=== PATIENT | female | born 1965 | race Caucasian/White ===

== ENCOUNTER 2025-07-28 08:46 | Day surgery (SDC) | payer MEDICARE, MEDICAID ==
[2025-07-21 11:51] LABS: LEUKOCYTE ESTERASE ,URINE NEGATIVE (Neg); MEAN PLATELET VOLUME 8.4 FL (7.4-10.4); NITRITES, URINE NEGATIVE (Neg); OCCULT BLOOD,URINE NEGATIVE (Neg); PRE OP HEMATOCRIT 37.3 % (35.0-45.0); PRE OP HEMOGLOBIN 12.8 g/dL (12.0-16.0); PRE OP PLATELET COUNT 252 X10'3 (140-440); PRE OP WHITE BLOOD COUNT 7.6 10'3 (4.8-10.8); RED CELL DISTRIBUTION WIDTH 14.3 % (11.5-14.5)
[2025-07-21 11:56] LABS: UA COLLECTION TYPE CLN CATCH MIDSTREAM
--- NOTE | 2025-07-21 11:56 | ELECTROCARDIOGRAPH REPORT ---
[facility] Test Date: 2025-07-21 Test Time: 11:55:00 Pat Name: GABRIEL [place] Department: [facility]-PRE-OP Patient ID: [id number] Room: Gender: F General Education Instructor: TWILA : 1965 Requested By: ADA SALEH Order Number: [id number] Reading MD: Dr. CHIRAG Lowe Measurements Intervals [place] Rate: 68 P: 62 HI: 116 QRS: 82 QRSD: 74 T: 76 QT: 405 QTc: 431 Interpretive Statements Sinus rhythm Borderline short HI interval Electronically Signed On 07-21-2025 16:48:[address] CHIRAG Lowe Please click the below link to view image of tracing.
[2025-07-21 12:07] LABS: CREATININE 1.00 MG/DL (0.40-0.90); PRE OP ALT 33 U/L (30-65); PRE OP ANION GAP 7 (8-16); PRE OP AST 27 U/L (10-37); PRE OP BILIRUB, TOTAL 0.4 MG/DL (0.0-1.0); PRE OP GLUCOSE 103 MG/DL (70-104); PRE OP INR 1.0 INR; PRE OP PARTIAL THROMB. TIME 26.0 SECONDS (22-32); PRE OP POTASSIUM 4.6 MMOL/L (3.4-5.1); PRE OP PROTIME 10.1 SECONDS (9.0-12.0); PRE OP SODIUM 137 MMOL/L (135-145); TOTAL CARBON DIOXIDE 25.7 MMOL/L (24-32); eGFR 57 ML/MIN
--- NOTE | 2025-07-21 13:09 | RADIOLOGY REPORT ---
EXAM: DI CHEST,TWO VIEWS CLINICAL HISTORY: Pain COMPARISON: None TECHNIQUE: Frontal and lateral view of the chest was obtained FINDINGS: Lines and Tubes: None Lungs: No focal consolidation. Pleura: No effusion. No pneumothorax. Cardiomediastinal contours: Unremarkable Bones: No acute osseous abnormality. IMPRESSION: No acute cardiopulmonary disease.
[~2025-07-28] VITALS: Ht 166.4 cm; Wt 86.2 kg
[2025-07-28] MEDS: ceFAZolin 2gm/dext,iso 50mL 50 ML IV ONE (05:30)
[~2025-07-28 08:46] MED LIST: AMLO5TAB PO; ASPI-10 PO; ATOR40TA71 PO; CHOL100046 PO; FLUT16SP2 BOTHNARES; LEVE750T PO; LISI5TAB22 PO; LORA-268 PO; MELA10TA2 PO; MULT-1085 PO; PANT-47 PO; PERA6TAB PO; [UNRECOGNIZED DRUG - CODE] PO
[2025-07-28 08:50] VITALS: BP 129/83; PULSE 72; RESP 16; TEMP 97.5; O2SAT 100
[2025-07-28] MEDS ORDERED: MONT-47 PO (09:41)
[2025-07-28] MEDS: ringers solution, lacted 1,000 ML IV SCH (09:45)
[2025-07-28] MEDS ORDERED: BUPIVAcaine 2.5mg/ml inj 50ml vial (contains preservative) ONE (11:25)
[2025-07-28] MEDS ORDERED: fentaNYL/PF 50MCG/1 ML 2ML syringe ONE (11:39)
[2025-07-28] MEDS ORDERED: propofol inj 20 ML IV ONE (11:45)
[2025-07-28] MEDS ORDERED: midazolam 1 mg/ML 2ml injection ONE (11:45)
[2025-07-28 12:21] VITALS: BP 118/81; PULSE 72; RESP 14; O2SAT 98
[2025-07-28] MEDS ORDERED: ringers solution, lacted 1,000 ML IV SCH (12:25)
[2025-07-28] MEDS ORDERED: morphine 4 MG/ML inj SYRINge IV PRN ×2 (12:25)
[2025-07-28] MEDS ORDERED: ondansetron/PF 4mg/2ml inj IV PRN (12:25)
[2025-07-28] MEDS ORDERED: acetaminophen 1,000mg/100ml IV 100 ML IV PRN (12:25)
[2025-07-28] MEDS ORDERED: HYDROmorphone/PF 0.2 MG/ML SYRINGE IV PRN ×2 (12:25)
[2025-07-28] MEDS ORDERED: labetalol 20mg/4ml (5mg/ml) syringe IV PRN (12:25)
[2025-07-28] MEDS ORDERED: hydrALAZINE 20mg/ml inj. IV PRN (12:25)
[2025-07-28 12:30] VITALS: BP 124/80; PULSE 67; RESP 14; O2SAT 99
[2025-07-28 12:40] VITALS: BP 129/84; PULSE 68; RESP 13; O2SAT 98
[2025-07-28 12:50] VITALS: BP 124/84; PULSE 72; RESP 12; O2SAT 99
[2025-07-28 13:00] VITALS: BP 151/98; PULSE 65; RESP 14; O2SAT 99
--- NOTE | 2025-07-28 13:17 | OPERATIVE REPORT ---
DATE OF SURGERY: 07/28/2025 DICTATING PHYSICIAN: Mohit Ramirez DPM SURGEON: Mohit Ramirez DPM PREOPERATIVE DIAGNOSIS: Painful 4th toe with exostosis of the middle phalanx, 4th toe left. POSTOPERATIVE DIAGNOSIS: Painful 4th toe with exostosis of the middle phalanx, 4th toe left. PROCEDURES: * Arthroplasty of the proximal interphalangeal joint of the 4th toe left. * Lateral hemiphalangectomy of the middle phalanx of the 4th toe left. COMPLICATIONS: None. ESTIMATED BLOOD LOSS: Less than 1 mL. ANESTHESIA: Local with MAC. The patient was given bupivacaine intraoperatively, a total of 10 mL of 0.5% Marcaine or bupivacaine plain. The patient was given 2 g of cefazolin 30 minutes prior to skin incision IV. INDICATIONS FOR SURGERY: Chronic pain and inability to perform activities of daily living due to the painful 4th toe. Previous nonsurgical measures were tried and ineffective. COMPLICATIONS: None. DESCRIPTION OF PROCEDURE: The procedure is as follows: The patient was escorted to the operating room suite where she was prepared and draped in the usual sterile technique. Placed in the supine position. C-arm was used during the case. A dorsal incision was made over the 4th toe. Exposure of the proximal interphalangeal joint of the 4th toe was identified. An arthrotomy of the proximal interphalangeal joint was performed. An arthroplasty was then performed after releasing the extensor tendon. Then, a lateral hemiphalangectomy of the middle phalanx was performed of the 4th toe. Irrigation was used with saline. The tourniquet was deflated. Upon completion of this part of the procedure, any bleeding vessels were bovied. A K-wire was used for fixation. The tissues were closed in layers. Capillary refill time was noted to be instantaneous for all the digits of the left foot. The appropriate postoperative dressings were applied and the patient was escorted to PACU with the appropriate postoperative instructions. Mohit Ramirez DPM TID: [id number] RECEIPT: [id number] VENTURA/FRANKY
== END 2025-07-28 13:06 | disposition home or self-care (01) ==
LOC: PAS 08:46
PROVIDERS: ATTEND Podiatrist Foot & Ankle Surgery
DX: M89.8X8 Other specified disorders of bone, other site (principal); M79.675 Pain in left toe(s); I10 Essential (primary) hypertension; E66.9 Obesity, unspecified; F32.A Depression, unspecified; K21.9 Gastro-esophageal reflux disease without esophagitis; Z87.891 Personal history of nicotine dependence; Z86.73 Personal history of transient ischemic attack (TIA), and cerebral infarction without residual deficits; Z98.51 Tubal ligation status; Z98.890 Other specified postprocedural states; Z68.31 Body mass index [BMI] 31.0-31.9, adult; Z88.0 Allergy status to penicillin; Z91.040 Latex allergy status
CPT/HCPCS: 28160; 36415; 71046; 73620; 80053; 81003; 82948; 85025; 85610; 85730; 93005; A4618; A6253; A6402; A6446; A6449; A6455; A7000; J2250; J2704; J3010; J3490; J7030; J7120; Z7506; Z7512; Z7610; 76000